=== PATIENT | male | born 1975 | race Caucasian/White ===

== ENCOUNTER 2020-07-30 13:30 | Emergency (ER) | payer OTHER ==
[2020-07-30] MEDS ORDERED: MAG HYDROX/AL HYDROX/SIMETH 30 ML UNIT-DOSE CUP PO ONE (13:47)
[2020-07-30] MEDS ORDERED: FAMOTIDINE 20 MG TABLET PO ONE (13:47)
[2020-07-30] MEDS ORDERED: LIDOCAINE VISCOUS 2% ORAL/TOP 20 ML UNIT-DOSE CUP MM ONE (13:47)
[2020-07-30 13:51] VITALS: PULSE 90; TEMP 98.6; BMI 27.4
[2020-07-30] MEDS ORDERED: FAMOTIDINE 20 MG TABLET ONE (13:54)
[2020-07-30] MEDS ORDERED: MAG HYDROX/AL HYDROX/SIMETH 30 ML UNIT-DOSE CUP ONE (13:54)
[2020-07-30] MEDS ORDERED: LIDOCAINE VISCOUS 2% ORAL/TOP 20 ML UNIT-DOSE CUP ONE (13:55)
[2020-07-30 14:21] VITALS: BP 136/80
[2020-07-30 14:27] LABS: BASO % 0.7 % (0-2.0); EOS % 1.2 % (0-4.5); HEMATOCRIT 47.9 % (35.4-49); HEMOGLOBIN 16.2 GM/dl (11.7-16.9); LYMPH % 20.3 % (8-40); MCH 29.1 pg (25.7-33.7); MCHC 33.8 g/dl (32.0-35.9); MEAN CELL VOLUME 86.1 fl (80-96); MEAN PLT VOLUME 8.9 fl (7.5-11.1); MONO % 8.8 % (3.8-10.2); PLATELET COUNT 190 K/MM3 (134-434); RBC 5.56 M/mm3 (4.00-5.60); RDW 12.1 % (11.9-15.9); WHITE BLOOD COUNT 8.4 K/mm3 (4.0-10.8)
[2020-07-30 14:35] LABS: ALBUMIN 4.5 g/dl (3.4-5.0); BILIRUBIN,TOTAL 0.8 mg/dl (0.2-1); CALCIUM 9.2 mg/dl (8.5-10); CREATININE 0.7 mg/dl (0.55-1.3); POTASSIUM 3.7 mmol/L (3.5-5.1); TOT PROT 7.8 g/dl (6.4-8.2)
[2020-07-30] MEDS ORDERED: SODIUM CHLORIDE 0.9% 1000 ML INFUS.BAG IV ONE ×3 (14:45→17:40)
[2020-07-30] MEDS ORDERED: ACETAMINOPHEN 500 MG TABLET (FP) PO ONE (16:09)
[2020-07-30] MEDS ORDERED: ACETAMINOPHEN 500 MG TABLET (FP) ONE (16:11)
== END 2020-07-30 18:18 | disposition home or self-care (01) ==
LOC: FER 13:30
DX: R07.9 Chest pain, unspecified (principal)
CPT/HCPCS: 36415; 71046-TC-FY; 76705-TC; 80053; 82550; 82553; 84484; 85025; 93005; 99285-25